=== PATIENT | female | born 1960 | race African-American/Black ===

== ENCOUNTER → 2021-01-09 | Day surgery (SDC) | payer OTHER ==
[~2021-01-09] MED LIST: ALLERGY SHOT IM; AMITRIPTYLINE H25 MG PO; ASPIRIN81 MG PO; ATROVENT HFA12.9 GM INH; BENADRYL25 M1 PO; BUDESONIDE1 MG/2 ML NEB; BUTALBITAL-ACE1 EAC1 PO; CALAN SR120 MG PO; CALAN SR240 MG PO; CHLORDIAZEPOXI1 EACH PO; COMBIVENT RESPIM4 GM NEB; COQ1050 MG PO; CRESTOR10 MG PO; DEXAMETHASONE PHOS 24 MG/ML 10ML VIAL IV ONE; DIOVAN80 MG PO; DOXEPIN HCL10 MG PO; DUPIXENT300 MG/2 M SC; DYMISTA NASAL S23 GM INH; FLONASE ALLERG9.9 ML INH; INCRUSE ELLI62.5 MCG INH; IPRATROPIUM NASAL; LUNESTA3 MG PO; MELATONIN3 MG PO; METHOCARBAMOL750 MG PO; OFLOXACIN 0.3% (OTIC SOL) 5 ML BTL ONE; OMEPRAZOLE40 MG PO; PREDNISONE10 MG PO; SYMBICORT 16010.2 GM INH; TRIAMTERENE-HCTZ1 EA PO; VENTOLIN HFA18 GM INH; VITAMIN B122500 MCG PO; VITAMIN D310 MCG PO; VITAMIN E400 UNI1 PO; XYZAL5 MG PO
[2021-01-09 09:25] VITALS: BP 120/67
== END | disposition home or self-care (01) ==
LOC: OR 05:58
PROVIDERS: ATTEND Otolaryngology Otolaryngology/Facial Plastic Surgery
DX: H90.41 Sensorineural hearing loss, unilateral, right ear, with unrestricted hearing on the contralateral side (principal); G47.33 Obstructive sleep apnea (adult) (pediatric); J45.909 Unspecified asthma, uncomplicated; I10 Essential (primary) hypertension; I44.4 Left anterior fascicular block; Z88.0 Allergy status to penicillin; Z88.8 Allergy status to other drugs, medicaments and biological substances; Z79.82 Long term (current) use of aspirin